=== PATIENT | male | born 1965 | race Caucasian/White ===

== ENCOUNTER 2017-04-10 18:24 | Emergency (ER) | payer BC ==
--- NOTE | 2017-04-10 19:36 | ED Physician Documentation ---
PD HPI CHEST PAIN - Stated complaint Stated Complaint: ELEVATED BP - Chief complaint Chief Complaint: Cardiac - History obtained from History obtained from: Patient, Family (), Other (his physician called ROLAN) - History of Present Illness Timing - onset: Other (He's been running modestly high blood pressures at work, 140/80 or so for the last few months. Today he had what sounds like a panic attack with some shakiness and sweats. He went to see his doctor who saw that he had high blood pressure which was corroborated at work and a d-dimer was done and it was high so we he was referred here for a CAT scan. He doesn't have any pedal edema, recent travel, shortness of breath, chest pain, syncope, history of DVT or PE. No hemoptysis.) Review of Systems Constitutional: denies: Fever, Chills Throat: denies: Dental pain / toothache, Sore throat Cardiac: denies: Chest pain / pressure, Palpitations, Pedal edema, Calf pain Respiratory: denies: Dyspnea PD PAST MEDICAL HISTORY - Past Medical History Cardiovascular: Hypertension - Past Surgical History Past Surgical History: Yes HEENT: Tonsil/Adenoidectomy - Present Medications Home Medications: Ambulatory Orders Medication Instructions Recorded Confirmed No Known Home Medications [No 04/10/17 04/10/17 Known Home Medications] - Allergies Allergies/Adverse Reactions: Allergies Allergy/AdvReac Type Severity Reaction Status Date / Time No Known Drug Allergies Allergy Verified 04/10/17 18:34 - Social History Does the pt smoke?: No Smoking Status: Former smoker Does the pt drink ETOH?: Yes ETOH Use: Beer Does the pt have substance abuse?: No - Immunizations Immunizations are current?: Yes PD ED PE NORMAL - Vitals Vital signs reviewed: Yes - General General: Alert and oriented X 3, No acute distress - Neck Neck: Supple, no meningeal sign, No bony TTP - Cardiac Cardiac: RRR, No murmur - Respiratory Respiratory: No respiratory distress, Clear bilaterally - Abdomen Abdomen: Soft, Non tender - Extremities Extremities: No edema, No calf tenderness / cord - Neuro Neuro: Alert and oriented X 3, Normal speech - Psych Psych: Normal mood, Normal affect Results - Vitals Vitals: Vital Signs - 24 hr 04/10/17 04/10/17 18:28 18:45 Temperature 36.7 C Heart Rate 77 70 Respiratory 20 16 Rate Blood Pressure 194/107 H 173/96 H O2 Saturation 95 Oxygen O2 Source Room air - EKG (time done) 1916 Rate: Rate (enter#) (70) Rhythm: NSR [place]: Normal Intervals: Normal SC QRS: Normal Ischemia: Normal ST segments Computer interpretation: Agree with computer - Labs Labs: Laboratory Tests 04/10/17 19:50 Sodium 139 Potassium 3.6 Chloride 102 Carbon Dioxide 27 Anion Gap 10.0 BUN 10 Creatinine 0.8 Estimated GFR (MDRD) 102 Glucose 86 Calcium 9.4 - Rads (name of study) CT pulmonary angiogram Radiology: EMP read contemporaneously (Suboptimal contrast timing but grossly negative) PD MEDICAL DECISION MAKING - ED course ED course: 51-year-old gentleman with what sounds like a panic attack at work today followed by uncontrolled hypertension which resolved without specific intervention while in the emergency department. He was evaluated as an outpatient with a d-dimer, despite no shortness of breath, chest pain, pedal edema, or other signs or symptoms referable to PE. Grossly no PE on CT here. Departure - Departure Disposition: 01 Home, Self Care Clinical Impression: D dimer value unknown Hypertension Qualifiers: Hypertension type: essential hypertension Qualified Code(s): I10 - Essential ( primary) hypertension Condition: Good Record reviewed to determine appropriate education?: Yes Instructions: Hypertension Dc Comments: Call your doctor to arrange a follow up appointment. Make the next available appointment. In the interim return anytime if worse or if new symptoms develop.
[2017-04-10 20:20] LABS: CALCIUM 9.4 mg/dL (8.5-10.3); CREATININE 0.8 mg/dL (0.6-1.2); POTASSIUM 3.6 mmol/L (3.5-5.0)
[2017-04-10] MEDS ORDERED: IOPAMIDOL-300 100 ML VIAL IVP ONE (20:41)
--- NOTE | 2017-04-10 21:10 | CT Preliminary Report ---
Exam: CT Chest Angio (PE) IMPRESSION: 1. Limited CT pulmonary angiogram. No pulmonary embolism to the proximal segmental arteries. Suboptim al bolus timing and pulmonary artery enhancement limits evaluation of distal segmental and subsegment al arteries. 2. No aortic aneurysm or dissection. 3. Clear lungs. 4. Steatosis of the liver. [facility] SITE ID: [id number]
--- NOTE | 2017-04-10 21:13 | CT Report ---
EXAM: CT ANGIOGRAM CHEST EXAM DATE: 04/10/2017 08:46 PM. CLINICAL HISTORY: Elevated d-dimer. COMPARISON: None. TECHNIQUE: Routine helical imaging was performed through the chest in the pulmonary arterial phase. I V Contrast: 100 cc Isovue-300 IV. Reconstructions: Coronal 3-D MIP reconstructions.Sagittal and coron al. In accordance with CT protocol optimization, one or more of the following dose reduction techniques w ere utilized for this exam: automated exposure control, adjustment of mA and/or KV based on patient s ize, or use of iterative reconstructive technique. FINDINGS: Pulmonary Arteries: Diagnostic quality: Suboptimal enhancement through the segmental arteries. Proximal segmental artery density in lower lobes is 84 Hounsfield units. No pulmonary embolism to the proximal segmental arteri es with distal segmental arteries not evaluated. Main pulmonary artery is normal in size. Lungs/Pleura: No consolidation, nodules, or edema. No effusions or pneumothorax. Mediastinum: There are coronary artery calcifications. Heart size is normal. No pericardial effusion. No lymphadenopathy. Thoracic Aorta: No aneurysm or dissection of the thoracic aorta. Upper Abdomen: There is steatosis of the liver. Other: None. IMPRESSION: 1. Limited CT pulmonary angiogram. No pulmonary embolism to the proximal segmental arteries. Suboptim al bolus timing and pulmonary artery enhancement limits evaluation of distal segmental and subsegment al arteries. 2. No aortic aneurysm or dissection. 3. Clear lungs. 4. Steatosis of the liver. [facility] Referring Provider Line: [phone] SITE ID: [id number]
[2017-04-10 21:40] VITALS: BP 140/78
== END 2017-04-10 22:27 | disposition home or self-care (01) ==
LOC: ED 18:24
DX: I10 Essential (primary) hypertension (principal); Z87.891 Personal history of nicotine dependence
CPT/HCPCS: 36415; 71275; 80048; 93005; 93010; 99283; 99284; Q9967